=== PATIENT | female | born 1935 | race Caucasian/White ===

== ENCOUNTER 2019-10-29 21:58 | Emergency (ER) | payer OTHER ==
[~2019-10-29] VITALS: Ht 160 cm; Wt 69.8 kg
[2019-10-29 23:04] LABS: BASOPHILS ABSOLUTE AUTO 0.05 K/mm3 (0.00-0.23); BASOPHILS PERCENT AUTO 0 % (0-2); EOSINOPHILS ABSOLUTE AUTO 0.18 K/mm3 (0.00-0.68); EOSINOPHILS PERCENT AUTO 2 % (0-6); Hematocrit 32.2 % (33.0-51.0); Hemoglobin 10.5 g/dL (11.5-16.0); IMMATURE GRAN ABSOLUTE AUTO 0.07 K/mm3 (0.00-0.10); IMMATURE GRAN PERCENT AUTO 1 % (0-1); LYMPHOCYTES ABSOLUTE AUTO 1.03 K/mm3 (0.84-5.20); LYMPHOCYTES PERCENT AUTO 9 % (21-46); MONOCYTES ABSOLUTE AUTO 0.65 K/mm3 (0.16-1.47); MONOCYTES PERCENT AUTO 5 % (4-13); Mean Corpuscular HGB 31.5 pg (26.0-34.0); Mean Corpuscular HGB Conc 32.6 g/dL (31.5-36.5); Mean Corpuscular Volume 97 fL (80-100); Mean Platelet Volume 12.9 fL (9.1-12.4); NEUTROPHILS ABSOLUTE AUTO 9.95 K/mm3 (1.96-9.15); NEUTROPHILS PERCENT AUTO 84 % (41-73); Platelet Count 197 K/mm3 (150-400); RDW Coefficient Variation 12.8 % (11.7-14.2); RDW Standard Deviation 45.6 fL (35.1-46.3); Red Blood Cell Count 3.33 M/mm3 (3.80-5.20); White Blood Cell Count 11.93 K/mm3 (4.00-11.30)
[2019-10-29 23:24] LABS: Albumin, Blood 3.5 g/dL (3.4-5.0); Bilirubin, Total 0.2 mg/dL (0.1-1.0); Bun/Creatinine Ratio 15.1 (12.0-20.0); Calcium, Blood 8.6 mg/dL (8.5-10.1); Creatinine, Blood 1.52 mg/dL (0.40-1.00); Globulin, Blood 3.5 g/dL (2.2-4.0); Potassium, Blood 3.8 mmol/L (3.5-5.5); Troponin I 0.274 ng/mL (0.000-0.040)
== END 2019-10-30 00:54 | disposition left against medical advice (07) ==
LOC: ER 21:58
PROVIDERS: Emergency Medicine
DX: I21.4 Non-ST elevation (NSTEMI) myocardial infarction (principal); I16.9 Hypertensive crisis, unspecified; I72.5 Aneurysm of other precerebral arteries; I10 Essential (primary) hypertension; E78.00 Pure hypercholesterolemia, unspecified; F17.210 Nicotine dependence, cigarettes, uncomplicated; Z88.5 Allergy status to narcotic agent; W18.30XA Fall on same level, unspecified, initial encounter
CPT/HCPCS: 70450; 71046; 80053; 84484; 85025; 93005; 93010; 99284-25; J7030

== ENCOUNTER → 2020-08-26 | Outpatient (CLI) | payer MEDICARE | END | disposition home or self-care (01) | LOC: PLD 09:18 → LAB SHORT 09:18 | DX: C44.311 Basal cell carcinoma of skin of nose (principal) | CPT/HCPCS: 88305 ==

== ENCOUNTER 2021-12-19 15:05 | Emergency (ER) | payer MEDICARE, OTHER ==
[~2021-12-19] VITALS: Ht 160 cm; Wt 40.8 kg
[2021-12-19 16:43] LABS: BASOPHILS ABSOLUTE AUTO 0.09 K/mm3 (0.00-0.23); BASOPHILS PERCENT AUTO 1 % (0-2); EOSINOPHILS ABSOLUTE AUTO 0.18 K/mm3 (0.00-0.68); EOSINOPHILS PERCENT AUTO 2 % (0-6); Hematocrit 33.2 % (33.0-51.0); Hemoglobin 11.1 g/dL (11.5-16.0); IMMATURE GRAN ABSOLUTE AUTO 0.03 K/mm3 (0.00-0.10); IMMATURE GRAN PERCENT AUTO 0 % (0-1); LYMPHOCYTES ABSOLUTE AUTO 1.28 K/mm3 (0.84-5.20); LYMPHOCYTES PERCENT AUTO 16 % (21-46); MONOCYTES ABSOLUTE AUTO 0.48 K/mm3 (0.16-1.47); MONOCYTES PERCENT AUTO 6 % (4-13); Mean Corpuscular HGB 31.8 pg (26.0-34.0); Mean Corpuscular HGB Conc 33.4 g/dL (31.5-36.5); Mean Corpuscular Volume 95 fL (80-100); NEUTROPHILS ABSOLUTE AUTO 6.01 K/mm3 (1.96-9.15); NEUTROPHILS PERCENT AUTO 75 % (41-73); Platelet Count 324 K/mm3 (150-400); RDW Coefficient Variation 13.5 % (11.7-14.2); RDW Standard Deviation 46.9 fL (35.1-46.3); Red Blood Cell Count 3.49 M/mm3 (3.80-5.20); White Blood Cell Count 8.07 K/mm3 (4.00-11.30)
[2021-12-19 17:02] LABS: Albumin, Blood 3.5 g/dL (3.4-5.0); Albumin/Globulin Ratio 1.1 (0.8-1.8); Bilirubin, Total 0.3 mg/dL (0.1-1.0); Bun/Creatinine Ratio 33.1 (12.0-20.0); Calcium, Blood 8.8 mg/dL (8.5-10.1); Creatinine, Blood 1.3 mg/dL (0.40-1.00); Globulin, Blood 3.2 g/dL (2.2-4.0); Potassium, Blood 4.6 mmol/L (3.5-5.5); Total Protein, Blood 6.7 g/dL (6.4-8.2)
[2021-12-19 21:04] LABS: Source, Urine Clean Catch
[2021-12-19 21:11] LABS: Appearance, Urine Cloudy (Clear); Bilirubin, Urine Neg (Neg); Blood, Urine Neg (Neg); Color, Urine Amber (P-Yellow); Glucose Qualitative, Urine Neg (Neg); Ketones, Urine Neg (Neg); Leukocyte Esterase, Urine Neg (Neg); Nitrite, Urine Neg (Neg); Protein, Urine 3+ (Neg); Urobilinogen, Urine NORM (Normal)
[2021-12-19 21:23] LABS: Amorphous Heavy (0-Heavy); Bacteria Few /hpf; Red Blood Cells, Urine Not Seen /hpf (0-2); Squamous Epithelial Cells Few /hpf (Few); White Blood Cells, Urine Not Seen /hpf (0-5)
[2021-12-19] MEDS ORDERED: Keppra750 MG PO (21:45)
[2021-12-19] MEDS ORDERED: TRAZ50 PO (21:46)
== END 2021-12-20 00:43 | disposition home or self-care (01) ==
LOC: ER 15:05
PROVIDERS: Physician Assistant
DX: R11.2 Nausea with vomiting, unspecified (principal); R19.7 Diarrhea, unspecified; I10 Essential (primary) hypertension; F17.210 Nicotine dependence, cigarettes, uncomplicated; Z88.5 Allergy status to narcotic agent
CPT/HCPCS: 36415; 80053; 81001; 83690; 85025; 99283; P9612

== ENCOUNTER 2022-08-06 18:53 | Inpatient (IN) | payer MEDICARE, OTHER ==
[~2022-08-06] VITALS: Ht 160 cm; Wt 50.8 kg
[~2022-08-06 18:53] MED LIST: Keppra750 MG PO; TRAZ50 PO
[2022-08-06 20:14] LABS: BASOPHILS ABSOLUTE AUTO 0.01 K/mm3 (0.00-0.23); BASOPHILS PERCENT AUTO 0 % (0-2); EOSINOPHILS PERCENT AUTO 0 % (0-6); Hematocrit 27.7 % (33.0-51.0); Hemoglobin 9.3 g/dL (11.5-16.0); IMMATURE GRAN ABSOLUTE AUTO 0.04 K/mm3 (0.00-0.10); IMMATURE GRAN PERCENT AUTO 0 % (0-1); LYMPHOCYTES ABSOLUTE AUTO 0.35 K/mm3 (0.84-5.20); LYMPHOCYTES PERCENT AUTO 3 % (21-46); MONOCYTES ABSOLUTE AUTO 0.36 K/mm3 (0.16-1.47); MONOCYTES PERCENT AUTO 3 % (4-13); Mean Corpuscular HGB Conc 33.6 g/dL (31.5-36.5); Mean Corpuscular Volume 95 fL (80-100); NEUTROPHILS ABSOLUTE AUTO 11.36 K/mm3 (1.96-9.15); NEUTROPHILS PERCENT AUTO 94 % (41-73); Platelet Count 202 K/mm3 (150-400); RDW Standard Deviation 48.8 fL (35.1-46.3); Red Blood Cell Count 2.91 M/mm3 (3.80-5.20); White Blood Cell Count 12.12 K/mm3 (4.00-11.30)
[2022-08-06 20:17] LABS: International Normalized Ratio 0.98; Prothrombin Time Results 10.3 Sec (9.7-11.5)
[2022-08-06 20:17] LABS: Mean Platelet Volume 13.3 fL (9.1-12.4)
[2022-08-06 20:22] LABS: Bilirubin, Total 0.2 mg/dL (0.1-1.0); Calcium, Blood 7.2 mg/dL (8.5-10.1); Creatinine, Blood 4.83 mg/dL (0.40-1.00); Globulin, Blood 3.1 g/dL (2.2-4.0); Total Protein, Blood 6.1 g/dL (6.4-8.2)
--- NOTE | 2022-08-06 22:58 | NUR ---
PATIENT ARRIVED FROM ER VIA GURNEY AT 2238. VERY LETHARGIC. UNABLE TO ANSWER QUESTIONS EVEN YES OR NO UPON ARRIVAL. AFTER REMOVING PATIENT CLOTHING AND GENTLY CLEANSING LEGS AND ERIC-RECTAL AREA OF DRIED STOOL, IT WAS NOTED NED GLUTEAL FOLDS WERE VERY RED AND HAD TWO SMALL OPEN AREAS. ALSO, EMANUEL BLOOD WAS SLOWLY DRIPPING FOR HER RECTUM.
[2022-08-07 01:06] LABS: Hematocrit 27.7 % (33.0-51.0); Hemoglobin 9.3 g/dL (11.5-16.0)
--- NOTE | 2022-08-07 02:13 | NUR ---
HGB ON 0100 DRAW REMAINS 9.3. NO CHANGE FROM INITIAL LAB. 2 AMP BICARB GIVEN PER ORDER. CURRENTLY RUNNING CONTINUOUS BICARB GTT AT 100ML/HOUR. PROTONIX ALSO UP RUNNING AT 10ML/HR. PATIENT REMAINS UNABLE TO PROVIDE MEDICAL HX OR MEDICATIONS. INFO FOR ADMISSION GATHERED FROM PREVIOUS NOTES IN [facility]. CALL PLACED TO NILAM FRIAS. SPOKE WITH CAREGIVER FROM THE ASSISTED LIVING FLOOR WHO STATED THAT JULIAN LIVES ON THE INDEPENDENT LIVING FLOOR, AND SHE DOES NOT HAVE ACCESS TO THIS PATIENT'S MARS OR MEDICAL HISTORY. PHONE NUMBER FOR MED FLOOR CHARGE DESK GIVEN AND REQUESTED THAT WHEN OTHER CAREGIVERS ARRIVE IN THE MORNING, TO PLEASE HAVE THEM CALL WITH PATIENT INFORMATION. COME IN IN THE MORNING,
--- NOTE | 2022-08-07 08:01 | NUR ---
CALLED GI ANSWERING SERVICE. LEFT MESSAGE WITH THE ANSWERING ATHLETIC EVENTS SCORER FOR DR GARDNER GI CONSULT.
--- NOTE | 2022-08-07 08:13 | NUR ---
LABORER ORCHARD SUMMARY PATIENT VERY LETHARGIC OVERNIGHT. UNABLE TO RELAY ANY MEDICAL HISTORY OR EVEN THE MONTH TOWARDS THE END OF THE SHIFT. SHE WAS ALERT ENOUGH UPON ARRIVAL TO SIT UP ON THE GURNEY AND ASK IF SHE HAD PNEUMONIA. SHE SAID THAT AT HOME. SHE WAS INDEPENDENT AND AMBULATING WITH A FWW. WITHIN MINUTES OF ASSESSING HER SHE WAS ASLEEP, AND AFTER THAT,SHE JUST KEPT ASKING IF SHE COULD "GO TO BED". SHE DOES REQUIRE CONSTANT REDIRECTION REGARDING NOT PULLING AT WIRES OR REACHING FOR IV. SCANNED ONCE OVERNIGHT TO FIND SHE HAD LESS THAN 50ML IN HER BLADDER. NO VOID YET SINCE ADMISSION. PATIENT HAS BEEN NPO ALL NIGHT. PHOTOS ON CHART SHOW A VERY EXCORIATED GLUTEAL FOLD AND ERIC AREA. TWO VERY SMALL OPEN ABRADED AREAS ONE OF WHICH IS STILL WEEPING EMANUEL BLOOD WERE CLEANSED AND COVERED WITH MEPILEX. OTHER AREAS WERE COVERED WITH BARRIER CREAM
--- NOTE | 2022-08-07 08:22 | NUR ---
CALL FROM DR HOLLINGSWORTH. PT MAY DRINK WATER UNTIL 1300HRS THEN NPO.
[2022-08-07 08:43] LABS: BASOPHILS PERCENT AUTO 0 % (0-2); EOSINOPHILS PERCENT AUTO 0 % (0-6); Hemoglobin 9.4 g/dL (11.5-16.0); IMMATURE GRAN ABSOLUTE AUTO 0.05 K/mm3 (0.00-0.10); IMMATURE GRAN PERCENT AUTO 1 % (0-1); LYMPHOCYTES ABSOLUTE AUTO 0.46 K/mm3 (0.84-5.20); LYMPHOCYTES PERCENT AUTO 5 % (21-46); MONOCYTES PERCENT AUTO 4 % (4-13); Mean Corpuscular HGB 31.9 pg (26.0-34.0); Mean Corpuscular HGB Conc 34.8 g/dL (31.5-36.5); Mean Corpuscular Volume 92 fL (80-100); Mean Platelet Volume 13.4 fL (9.1-12.4); NEUTROPHILS ABSOLUTE AUTO 9.21 K/mm3 (1.96-9.15); NEUTROPHILS PERCENT AUTO 91 % (41-73); Platelet Count 203 K/mm3 (150-400); RDW Coefficient Variation 13.7 % (11.7-14.2); RDW Standard Deviation 46.5 fL (35.1-46.3); Red Blood Cell Count 2.95 M/mm3 (3.80-5.20); White Blood Cell Count 10.12 K/mm3 (4.00-11.30)
[2022-08-07 09:20] LABS: Albumin, Blood 2.8 g/dL (3.4-5.0); Albumin/Globulin Ratio 0.9 (0.8-1.8); Bilirubin, Total 0.2 mg/dL (0.1-1.0); Bun/Creatinine Ratio 25.4 (12.0-20.0); Calcium, Blood 6.8 mg/dL (8.5-10.1); Creatinine, Blood 4.56 mg/dL (0.40-1.00); Globulin, Blood 3.1 g/dL (2.2-4.0); Potassium, Blood 3.7 mmol/L (3.5-5.5); Total Protein, Blood 5.9 g/dL (6.4-8.2)
--- NOTE | 2022-08-07 09:25 | NUR ---
CRITICAL CO2 CALL FROM LAB AT 918. DR HERNANDEZ CALLED AND NOTIFIED AT 09. BICARB IS CURRENTLY INFUSING. NO NEW ORDERS AT THIS TIME.
[2022-08-07] MEDS ORDERED: Prinivil10 MG PO (11:03)
[2022-08-07] MEDS ORDERED: AMLO10 PO (11:04)
--- NOTE | 2022-08-07 11:22 | NUR ---
RN NOTE I SPOKE TO JERRICA THE OFFICE EMPLOYEE AT [facility]. SHE SAID PT HAS BEEN CONFUSED AT BASELINE, HAS HAS POOR DIETARY INTAKE, SKOKES AND DRINKS A OT OF COFFEE. SHE SAID PT HAS DEMENTIA, DOESN'T KNOW REST OF MEDICAL HX OR MEDS. SHE SAID SHE HAS PUSHED FOR [facility] AND HAS CALLED APS TWICE. SHE SAID SON RAFAEL HAS SAID HE DOESN'T WANT TO BE INVOLVED. SHE DID FAX ME A COPY OF POLST WITH DNR. I CALLED LALO QUARTZ CUTTER AND INFORMED HER OF UPDATE. I CALLED SON - PHONE NOT IN SERVICE. I CALLED NOK FRIEND YONI ON FILE AND LEFT DISCRETE MESSAGE. I CALLED MEDICAL FACILITIES IN [place] AND TALKED TO MALINA NURSE MACHINE SPECIALIST AT [facility]. SHE CONFIRMED PT HAS GONE THERE. CONFIRMED MED LIST I GOT FROM [facility]. SAID SHE WILL FAX ME WHAT INFORMATION SHE CAN FIND. I UPDATED DR HERNANDEZ ON STATUS AND MED LIST. STATUS CHANGED TO DNR, PALLIATIVE CARE CONSULT PLACED PER TELEPHONE ORDER. PT HAS NOT VOIDED THOUGH HAS TRIED ON BSC. 300CC IN BLADDER ON US PER US TECH THIS AM. STRAIGHT CATH ORDER FROM DR HERNANDEZ. PT CONFUSED. ORIENTATED TO NAME AND TO [place], THINKS IT'S 1962. HAS 5/10 BACK ACHE AND MILD NAUSEA. HAS NOT WANTED TO DRINK FLUIDS. NO BM THIS AM.
[2022-08-07 11:27] LABS: Hemoglobin 8.9 g/dL (11.5-16.0)
[2022-08-07 12:37] LABS: Source, Urine Straight Cath
[2022-08-07 12:43] LABS: Appearance, Urine Clear (Clear); Bilirubin, Urine Neg (Neg); Blood, Urine 2+ (Neg); Color, Urine Yellow (P-Yellow); Glucose Qualitative, Urine Neg (Neg); Ketones, Urine 2+ (Neg); Leukocyte Esterase, Urine Neg (Neg); Nitrite, Urine Neg (Neg); Protein, Urine 3+ (Neg); Specific Gravity, Urine 1.015 (1.003-1.022); Urobilinogen, Urine NORM (Normal)
[2022-08-07 12:58] LABS: Red Blood Cells, Urine 0-2 /hpf (0-2); Squamous Epithelial Cells Rare /hpf (Few); White Blood Cells, Urine 0-2 /hpf (0-5)
[2022-08-07 12:59] LABS: Bacteria Few /hpf
[2022-08-07 13:01] LABS: Amorphous Mod (0-Heavy)
--- NOTE | 2022-08-07 16:24 | NUR ---
SHIFT SUMMARY PLEASE SEE EARLIER RN NOTE. NO RETURN CALL FROM FRIEND LISTED NEXT OF KIN. NO FAXED INFORMATION FROM MALINA, NURSING TECHNICAL FELLOW AT [facility]. PALLIATIVE CARE CONSULTED AND INVOLVED IN HER CARE. COGNITIVE EVAL AND POSSIBLE PSYCH CONSULT FOR GUARDIANSHIP DISCUSSED WITH DR HERNANDEZ. NO PSYCH CARE AVAILABLE AT THIS TIME (FOREST AIDE ELLEN JERAD). COGNITIVE EVAL FROM OT ORDERED, BUT THEY ARE NOT HERE OVER THE WEEKEND. BICARB IV AND PROTONIX GTT CONTINUES. NO BM SO FAR THIS SHIFT. SHE WAS UNABLE TO VOID AND STRAIGHT CATH WAS DONE AT ~1300HRS WITH 540CC UOP. MS ROSA HAS BEEN VERY SLEEPY TODAY. SHE AWAKENS TO VOICE BUT HAS BEEN VERY CONFUSED WHEN AWAKE. ABLE TO FOLLOW DIRECTIONS, BUT VERY FORGETFUL. MOIST NON PRODUCTIVE COUGH. BACK DISCOMFORT WHEN ASKED, BUT SHE DOES NOT VERBALISE PAIN AND HAS DENIED NEED FOR MEDICATIONS. BED LOW, BED ALARM ON. CALL LIGHT IN REACH.
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
[2022-08-07 17:59] LABS: Base Excess Venous -21.6 mmol/L; Bicarbonate Venous 9.9 mmol/L (24.0-30.0); PCO2 Venous 18.5 mmHg (38-42)
[2022-08-07 18:00] LABS: pH Blood Venous 7.18 (7.34-7.37)
[2022-08-07 18:01] LABS: Hematocrit 25.9 % (33.0-51.0); Hemoglobin 9.1 g/dL (11.5-16.0)
--- NOTE | 2022-08-07 18:11 | NUR ---
CALL FROM WILLIE WITH RT REGARDING VENOUS BLOOD GAS VALUES. DR HERNANDEZ CALLED AND NOTIFIED. NO NEW ORDERS AT THIS TIME.
[2022-08-07 18:18] LABS: Bun/Creatinine Ratio 25.9 (12.0-20.0); Calcium, Blood 6.8 mg/dL (8.5-10.1); Creatinine, Blood 4.68 mg/dL (0.40-1.00); Potassium, Blood 3.3 mmol/L (3.5-5.5)
--- NOTE | 2022-08-07 18:26 | NUR ---
CRITICAL CO2 CALLED FROM LAB AT 1817. CALLED AND INFORMED DR HERNANDEZ AT 1821. NEW ORDERS PLACED BY DR HERNANDEZ.
--- NOTE | 2022-08-07 18:31 | NUR ---
Review of patient with nursing . chart review pt has been declining the past few years since moving hear. Off her meds per notes by hers son. Not getting care form primary care. Will review with physicn and team and faormulate a clearer prognosis and present plan.
[2022-08-08 05:20] LABS: Hematocrit 24.4 % (33.0-51.0); Hemoglobin 8.9 g/dL (11.5-16.0); Mean Corpuscular HGB 31.7 pg (26.0-34.0); Mean Corpuscular HGB Conc 36.5 g/dL (31.5-36.5); Mean Platelet Volume 12.9 fL (9.1-12.4); Platelet Count 209 K/mm3 (150-400); RDW Coefficient Variation 13.5 % (11.7-14.2); Red Blood Cell Count 2.81 M/mm3 (3.80-5.20); White Blood Cell Count 7.64 K/mm3 (4.00-11.30)
[2022-08-08 05:22] LABS: Mean Corpuscular Volume 87 fL (80-100)
[2022-08-08 05:48] LABS: Magnesium, Blood 2.1 mg/dL (1.6-2.4)
[2022-08-08 05:54] LABS: Albumin, Blood 2.6 g/dL (3.4-5.0); Anion Gap 15 mmol/L (6-16); Blood Urea Nitrogen 98 mg/dL (8-24); Bun/Creatinine Ratio 26.8 (12.0-20.0); CO2, Blood 18 mmol/L (21-32); Chloride, Blood 108 mmol/L (98-108); Creatinine, Blood 3.65 mg/dL (0.40-1.00); Glomerular Filtration Rate 12 (60-); Glucose, Blood 147 mg/dL (70-99); Phosphorus, Blood 4.4 mg/dL (2.5-4.9); Potassium, Blood 2.3 mmol/L (3.5-5.5); Sodium, Blood 141 mmol/L (136-145)
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
--- NOTE | 2022-08-08 17:24 | NUR ---
SHIFT SUMMARY MS ROSA HAS BEEN VERY CONFUSED TODAY. SHE IS ABLE TO ANSWER SOME OF THE ORIENTATION QUESTIONS INTERMITTANTLY, BUT IS FREQUENTLY CONFUSED ABOUT WHERE SHE IS, FREQUENTLY TELLING ME CONFUSED STORIES, VERY FORGETFUL. TURNED IN BED, INCONT OF URINE, UNMEASURABLE BUT SEEMS LARGE URINE OUTPUT. PURE WICK PLACED. SHE HAS DENIED PAIN EXCEPT FOR GENERAL DISCOMFORT WITH RIGHT ARMBOARD OVER IV SITE. ARMBOARD REMOVED AND SITE CHECKED. IVF NS CONTINUES AT 75CC/HR. SHE HAS BEEN REMINDED TO DRINK WATER, PREFERING PEPSI. PROTONIX GTT CONTINUES. NO STOOL TODAY. MEPILEX ON BUTTOCKS, AREA RED, EXCORIATED WITH SMALL SKIN BREAKDOWN. MOIST COUGH CONTINUES, APPEARS UNCHANGED FROM YESTERDAY. BED LOW, CALL LIGHT IN REACH, BED ALARM ON.
--- NOTE | 2022-08-09 03:43 | NUR ---
NIGHTSHIFT SUMMARY Patient alert/oriented to self, disoriented to place/situation, she kept referring to another patient as a witch, demanding that staff get rid of her, or else she would. Reoriented patient to time/place/situation. Patient allowed cares most of the night, purewick in place for incontince. C/o knee pain, Tylenol administred, PRN effective. IV fluids & Protonix infusing continously. Vitals stable, will continue to monitor.
[2022-08-09 04:38] LABS: Hematocrit 24.6 % (33.0-51.0); Hemoglobin 8.9 g/dL (11.5-16.0); Mean Corpuscular HGB 31.4 pg (26.0-34.0); Mean Corpuscular HGB Conc 36.2 g/dL (31.5-36.5); Mean Corpuscular Volume 87 fL (80-100); NRBC ABSOLUTE 0.02 K/mm3 (0.00-0.02); NRBC Auto 0.2 /100 WBC (0.0-0.2); Platelet Count 228 K/mm3 (150-400); RDW Coefficient Variation 13.4 % (11.7-14.2); RDW Standard Deviation 42.9 fL (35.1-46.3); Red Blood Cell Count 2.83 M/mm3 (3.80-5.20); White Blood Cell Count 8.01 K/mm3 (4.00-11.30)
[2022-08-09 04:42] LABS: Mean Platelet Volume 13.2 fL (9.1-12.4)
[2022-08-09 04:53] LABS: Magnesium, Blood 1.6 mg/dL (1.6-2.4)
[2022-08-09 05:19] LABS: Albumin, Blood 2.3 g/dL (3.4-5.0); Anion Gap 11 mmol/L (6-16); Blood Urea Nitrogen 68 mg/dL (8-24); Bun/Creatinine Ratio 36.2 (12.0-20.0); CO2, Blood 19 mmol/L (21-32); Calcium, Blood 6.7 mg/dL (8.5-10.1); Chloride, Blood 112 mmol/L (98-108); Creatinine, Blood 1.88 mg/dL (0.40-1.00); Glomerular Filtration Rate 26 (60-); Glucose, Blood 106 mg/dL (70-99); Potassium, Blood 2.2 mmol/L (3.5-5.5); Sodium, Blood 142 mmol/L (136-145)
--- NOTE | 2022-08-09 11:58 | NUR ---
RN NOTE MS ROSA REMAINS VERY CONFUSED. HAS NICOTENE PATCH ON, BUT DOES ASK IF SHE CAN SMOKE, SAID SHE SEES OTHER PEOPLE SMOKING IN THE HALLWAYS. SHE HAS CONSISTANTLY BEEN ABLE TO TELL ME HER NAME AND TELLS ME THE NAMES OF OTHER PEOPLE SHE KNOWS BUT SHE ONLY INTERMITTANTLY KNOWS THAT SHE IS IN [place] OR IN THE HOSPITAL. C/O R KNEE PAIN THIS AM, TYLENOL AND REPOSITIONING HELPED, UNCLEAR WHETHER THIS IS NEW OR CHRONIC. INCONTINENT OF URINE, PURE WICK IN PLACE. UP TO RECLINER WITH 1 PERSON ASSIST, CHAIR ALARM USED. SHE DID NOT WEIGHT BEAR VERY WELL OR FOLLOW INSTRUCTIONS VERY WELL FOR THE TRANSFER. NEW PIV PLACED THIS AM AFTER INFILTRATION OF RUE PIV (REMOVED). IVF AND PROTONIX GTT CONTINUE. MS ROSA ATE SOME EGGS FOR BREAKFAST THIS AM, WHICH IS GOOD FOR HER. ENCOURAGED TO CONSUME MORE WATER AND MEAL FROM HER TRAYS RATHER THAN JUST PEPSI. BACK IN BED NOW, BED LOW, CALL LIGHT IN REACH, BED ALARM ON.
--- NOTE | 2022-08-09 19:26 | NUR ---
SHIFT SUMMARY MS ROSA REMAINED CONFUSED THROUGHOUT THE DAY TODAY. ENERGETIC AND TALKATIVE, BUT FREQUENTLY ASKING TO GO OUTSIDE FOR A CIGARETTE. ATE A LITTLE MORE TODAY. GIVEN TYLENOL TWICE WHICH SEEMS TO HELP TO KEEP HER COMFORTABLE. GOOD UOP, BUT UNMEASURABLE INCONTINENT WHEN PURE WICK FELL OUT (REPLACED). NO CALLS FROM WARDROBE STYLIST. TOLERATED BEING UP IN THE CHAIR BUT NOT FOLLOWING INSTRUCTIONS ENOUGH TODAY TO AMBULATE IN HER ROOM, ABLE TO PIVOT AND TAKE A COUPLE OF STEPS WITH REPEATED INSTRUCTIONS. DRANK A WHOLE BOTTLE OF PEPSI (500ML) BUT REFUSING WATER MOST OF THE TIME. IVF AND PROTONIX GTT INFUSING. BED LOW, CALL LIGHT IN REACH.
[2022-08-09 21:48] LABS: Influenza A, PCR NEGATIVE (NEGATIVE); Influenza B, PCR NEGATIVE (NEGATIVE); Resp Syncytial Virus, PCR NEGATIVE (NEGATIVE); SARS-Cov-2 (COVID-19) PCR, MMC NEGATIVE (NEGATIVE)
--- NOTE | 2022-08-10 04:49 | NUR ---
SHIFT SUMMARY PT HAS BEEN ON HER CALL LIGHT MUCH OF THE NIGHT. PT PLEASANTLY CONFUSED, PUSHING BUTTONS ON HER CALL LIGHT TO TURN OF RANDOM THINGS IN HER ROOM. PT ASKED FOR MEDICATION FOR SLEEP AND FOR HER SINUS ISSUES. CALLED DR FINLEY AND WAS GIVEN CLARITIN AND MELATONIN PER EMAR. PT RESTING QUIETLY AT THIS TIME. NS AND PROTONIX STILL RUNNING AT THIS TIME. CALL LIGHT WITHIN HER REACH.
[2022-08-10 07:18] LABS: Hemoglobin 8.9 g/dL (11.5-16.0); Mean Corpuscular HGB 31.6 pg (26.0-34.0); Mean Corpuscular HGB Conc 35.6 g/dL (31.5-36.5); Mean Corpuscular Volume 89 fL (80-100); Mean Platelet Volume 12.3 fL (9.1-12.4); Platelet Count 228 K/mm3 (150-400); RDW Coefficient Variation 13.8 % (11.7-14.2); RDW Standard Deviation 44.7 fL (35.1-46.3); Red Blood Cell Count 2.82 M/mm3 (3.80-5.20); White Blood Cell Count 8.72 K/mm3 (4.00-11.30)
[2022-08-10 07:44] LABS: Albumin, Blood 2.1 g/dL (3.4-5.0); Anion Gap 9 mmol/L (6-16); Blood Urea Nitrogen 48 mg/dL (8-24); Bun/Creatinine Ratio 34.8 (12.0-20.0); CO2, Blood 19 mmol/L (21-32); Calcium, Blood 7.7 mg/dL (8.5-10.1); Chloride, Blood 116 mmol/L (98-108); Creatinine, Blood 1.38 mg/dL (0.40-1.00); Glomerular Filtration Rate 38 (60-); Glucose, Blood 107 mg/dL (70-99); Magnesium, Blood 1.3 mg/dL (1.6-2.4); Phosphorus, Blood 2.7 mg/dL (2.5-4.9); Sodium, Blood 144 mmol/L (136-145)
--- NOTE | 2022-08-10 08:07 | NUR ---
Pt laying in bed awake a/ox2, states she's been here too long, but couldn't tell me when she came in, states she's cold but doing ok, thermostat is all the way up, lungs are clear t/o, a bit dim in bases, no cough noted at this time, on r/a, hrr, tele in place running sr with pacs, no edema noted, ppp faint, cap refill <3sec, vs stable, afebrile, iv x2, to r and l fa's infusing ns and protonix as ordered, btx4, abd flat soft nontender, incont of urine, purwik in place, and briefs, skin is clear except bottom is pink, not open, she is a 1-2 person assist to bsc, robb lee, james, call light in reach.
--- NOTE | 2022-08-10 18:05 | NUR ---
pt has been in bed repositioned a number of times, is pleasantly confused, will have an egd tomorrow, no acute changes this shift, call light in reach.
--- NOTE | 2022-08-11 04:40 | NUR ---
A&Ox2-3 WITH TANGENT, EPISODIC CONFUSION, SUCH USING CALL LIGHT ON TV REMOTE TO CALL FOR ASSISTANCE TURNING OFF THE TV. INCONTINENT OF BOWEL AND URINE; PUREWICK REMOVED THIS EVENING DUE TO FREQUENT BED CHANGES. CARDIAC TELEMETRY SINUS RHYTHM LAST NIHGT WITHOUT CARDIAC INCIDENT. PROTONIX gtt: MOST RECENT BAG TURNER AT 0330 AND SET TO ALARM 1 HOUR BEFORE COMPLETION SO NEW BAG CAN BE ORDERED IN TIME FROM PHARMACY. HAS BEEN ON CLEAR LIQUIDS ONLY SINCE MIDNIGHT AND WILL BE NPO AFTER NOON IN ANTICIPATION OF EGD THIS AFTERNOON. 3 LOOSE STOOLS NOTED LAST NIGHT; NO MELENA REPORTED. NO C/O ABD PAIN, DISCOMFORT OR URINRAY RETENTION. VSS. WILL REPORT TO ONCOMING RN.
[2022-08-11 04:42] LABS: Hematocrit 26.6 % (33.0-51.0); Hemoglobin 9.1 g/dL (11.5-16.0)
[2022-08-11 05:44] LABS: Albumin, Blood 2.1 g/dL (3.4-5.0); Anion Gap 7 mmol/L (6-16); Blood Urea Nitrogen 33 mg/dL (8-24); Bun/Creatinine Ratio 29.5 (12.0-20.0); CO2, Blood 21 mmol/L (21-32); Chloride, Blood 114 mmol/L (98-108); Creatinine, Blood 1.12 mg/dL (0.40-1.00); Ferritin, Serum 172 ng/mL (8-252); Glomerular Filtration Rate 48 (60-); Glucose, Blood 100 mg/dL (70-99); Iron Serum 26 ug/dL (50-170); Magnesium, Blood 1.5 mg/dL (1.6-2.4); Percent Saturation 14.6 % (15.0-50.0); Phosphorus, Blood 2.4 mg/dL (2.5-4.9); Potassium, Blood 3.4 mmol/L (3.5-5.5); Sodium, Blood 142 mmol/L (136-145); Total Iron Binding Capacity 178 ug/dL (250-450)
--- NOTE | 2022-08-11 17:29 | NUR ---
SHIFT SUMMARY PT HAS BEEN NPO SINCE NOON FOR EGD WHICH HAS BEEN DELAYED TIL AFTER 1800. PT UPSET ABOUT THE DELAY AND STATES SHE IS JUST DONE IN DESCRIPTION OF NOT WANTING TO WAIT ANYMORE. WANTS TO EAT AND HAVE COFFEE. INCONTINENT OF URINE. PULLED HER IV OUT THIS MORNING AND THEN AGREED TO NOT PULL ANYMORE OUT TO AVOID ANOTHER IV STICK. DENIES PAIN OR NAUSEA OTHER THAN HUNGER. WALKING WITH PT AND OT TODAY USING A FWW. FRIEND YONI IN TO VISIT THIS MORNING. PLANS FOR PT TO RETURN TO [facility] WHEN SHE IS DISCHARGED.
--- NOTE | 2022-08-11 19:51 | NUR ---
08/11/221950 Karen Landaevrde See Anesthesia record.
--- NOTE | 2022-08-12 00:28 | NUR ---
PT BACK TO MEDICAL FLOOR FOLLOWING RECOVER IN PACU AFTER EGD. SITTING UP IN BED, DRINKING COFFEE. DECLINES DINNER TRAY. ADMINISTERED NIGHT TIME MEDS. NO CONCERNS AT THIS TIME.
--- NOTE | 2022-08-12 04:37 | NUR ---
ROVING TELLER SUMMARY: A&O TO SELF WITH INTERMITTENT ORIENTATION TO OTHER AND SURROUNDINGS. VSS. NO ACUTE CONCERNS T/O EVENING. CALLS FOR HELP. ANTICIPATE DC TO HOME AT [facility] TODAY. WILL REPORT TO ONCOMING RN.
[2022-08-12 05:19] LABS: Albumin, Blood 2.3 g/dL (3.4-5.0); Anion Gap 10 mmol/L (6-16); Blood Urea Nitrogen 25 mg/dL (8-24); Bun/Creatinine Ratio 21.9 (12.0-20.0); CO2, Blood 21 mmol/L (21-32); Calcium, Blood 8.2 mg/dL (8.5-10.1); Chloride, Blood 110 mmol/L (98-108); Creatinine, Blood 1.14 mg/dL (0.40-1.00); Glomerular Filtration Rate 47 (60-); Glucose, Blood 93 mg/dL (70-99); Phosphorus, Blood 3.7 mg/dL (2.5-4.9); Potassium, Blood 3.3 mmol/L (3.5-5.5); Sodium, Blood 141 mmol/L (136-145)
[2022-08-12] MEDS ORDERED: Acerola C500 MG PO (10:09)
[2022-08-12] MEDS ORDERED: DOCU100 PO (10:10)
[2022-08-12] MEDS ORDERED: CALCIUM CARBON500 M1 PO (10:10)
[2022-08-12] MEDS ORDERED: FERSU300 PO (10:11)
[2022-08-12] MEDS ORDERED: MIRALAX17 GM PO (10:11)
--- NOTE | 2022-08-12 14:22 | NUR ---
DISCHARGE INSTRUCTIONS COMPLETED AND DISCUSSED WITH PT EXPRESSING UNDERSTANDING. FRIEND YONI AT BEDSIDE WELL AND LISTENED IN ON INSTRUCTIONS. TO CURB VIA W/C WITH MADELEINE VALLEJO.
== END 2022-08-12 13:34 | disposition home health service (06) | DRG 682 ==
LOC: ER 18:53 → MEDS 21:55
PROVIDERS: Emergency Medicine; Internal Medicine; Internal Medicine Gastroenterology; ADMIT Internal Medicine
PROC: 0DJ08ZZ Inspection of Upper Intestinal Tract, Via Natural or Artificial Opening Endoscopic (ICD-10-PCS; principal; 2022-08-11 18:00)
DX: N17.9 Acute kidney failure, unspecified (principal); G92.8 Other toxic encephalopathy; E44.0 Moderate protein-calorie malnutrition; Z68.1 Body mass index [BMI] 19.9 or less, adult; E87.20 Acidosis, unspecified; D50.9 Iron deficiency anemia, unspecified; E78.00 Pure hypercholesterolemia, unspecified; Z88.5 Allergy status to narcotic agent; Z66 Do not resuscitate; G40.909 Epilepsy, unspecified, not intractable, without status epilepticus; Z79.899 Other long term (current) drug therapy; F17.210 Nicotine dependence, cigarettes, uncomplicated; Z20.822 Contact with and (suspected) exposure to COVID-19; E87.6 Hypokalemia; E83.39 Other disorders of phosphorus metabolism; N18.30 Chronic kidney disease, stage 3 unspecified; E83.42 Hypomagnesemia
CPT/HCPCS: 0241U; 36415; 76770; 80048; 80053; 80069; 81001; 82272; 82607; 82728; 82746; 82803; 83540; 83550; 83735; 83880; 84132; 85014; 85018; 85025; 85027; 85610; 86850; 86900; 86901; 96125-GN; 96360; 96361; 97116; 97129; 97161; 97166; 97530; 99285-25; A9270; C9113; J2001; J2250; J2704; J3475; J3480; J7030; J7050; J7060; J7120

== ENCOUNTER 2022-08-25 10:49 | Emergency (ER) | payer MEDICARE, OTHER ==
[~2022-08-25] VITALS: Ht 160 cm; Wt 40.8 kg
[~2022-08-25 10:49] MED LIST changes: +AMLO10 PO; +Acerola C500 MG PO; +CALCIUM CARBON500 M1 PO; +DOCU100 PO; +FERSU300 PO; +MIRALAX17 GM PO; +Prinivil10 MG PO
[2022-08-25 14:07] LABS: BASOPHILS ABSOLUTE AUTO 0.06 K/mm3 (0.00-0.23); BASOPHILS PERCENT AUTO 1 % (0-2); EOSINOPHILS ABSOLUTE AUTO 0.19 K/mm3 (0.00-0.68); EOSINOPHILS PERCENT AUTO 2 % (0-6); Hematocrit 27.2 % (33.0-51.0); IMMATURE GRAN ABSOLUTE AUTO 0.03 K/mm3 (0.00-0.10); IMMATURE GRAN PERCENT AUTO 0 % (0-1); LYMPHOCYTES ABSOLUTE AUTO 0.78 K/mm3 (0.84-5.20); LYMPHOCYTES PERCENT AUTO 8 % (21-46); MONOCYTES ABSOLUTE AUTO 0.48 K/mm3 (0.16-1.47); MONOCYTES PERCENT AUTO 5 % (4-13); Mean Corpuscular HGB 32.5 pg (26.0-34.0); Mean Corpuscular HGB Conc 33.1 g/dL (31.5-36.5); Mean Corpuscular Volume 98 fL (80-100); Mean Platelet Volume 12.2 fL (9.1-12.4); NEUTROPHILS ABSOLUTE AUTO 8.91 K/mm3 (1.96-9.15); NEUTROPHILS PERCENT AUTO 85 % (41-73); Platelet Count 291 K/mm3 (150-400); RDW Coefficient Variation 14.5 % (11.7-14.2); RDW Standard Deviation 51.9 fL (35.1-46.3); Red Blood Cell Count 2.77 M/mm3 (3.80-5.20); White Blood Cell Count 10.45 K/mm3 (4.00-11.30)
[2022-08-25 14:26] LABS: Albumin, Blood 2.9 g/dL (3.4-5.0); Albumin/Globulin Ratio 0.9 (0.8-1.8); Bilirubin, Total 0.3 mg/dL (0.1-1.0); Bun/Creatinine Ratio 21.4 (12.0-20.0); Calcium, Blood 7.4 mg/dL (8.5-10.1); Creatinine, Blood 1.54 mg/dL (0.40-1.00); Globulin, Blood 3.4 g/dL (2.2-4.0); Potassium, Blood 3.2 mmol/L (3.5-5.5); Total Protein, Blood 6.3 g/dL (6.4-8.2)
== END 2022-08-25 15:20 | disposition home or self-care (01) ==
LOC: ER 10:49
PROVIDERS: Emergency Medicine
DX: K62.5 Hemorrhage of anus and rectum (principal); F17.210 Nicotine dependence, cigarettes, uncomplicated; Z88.5 Allergy status to narcotic agent; Z79.899 Other long term (current) drug therapy
CPT/HCPCS: 80053; 85025

== ENCOUNTER 2022-09-06 14:34 | Inpatient (IN) | payer MEDICARE, OTHER ==
[~2022-09-06] VITALS: Ht 157.5 cm; Wt 45.4 kg
[~2022-09-06 14:34] MED LIST changes: -AMLO10 PO; -Acerola C500 MG PO; -CALCIUM CARBON500 M1 PO; -DOCU100 PO; -FERSU300 PO; -MIRALAX17 GM PO; -Prinivil10 MG PO; -TRAZ50 PO
[2022-09-06 15:35] LABS: Source, Urine Foley catheter
[2022-09-06 15:47] LABS: BASOPHILS ABSOLUTE AUTO 0.04 K/mm3 (0.00-0.23); BASOPHILS PERCENT AUTO 0 % (0-2); EOSINOPHILS ABSOLUTE AUTO 0.01 K/mm3 (0.00-0.68); EOSINOPHILS PERCENT AUTO 0 % (0-6); Hematocrit 24.6 % (33.0-51.0); IMMATURE GRAN ABSOLUTE AUTO 0.17 K/mm3 (0.00-0.10); IMMATURE GRAN PERCENT AUTO 1 % (0-1); LYMPHOCYTES PERCENT AUTO 1 % (21-46); MONOCYTES ABSOLUTE AUTO 0.96 K/mm3 (0.16-1.47); MONOCYTES PERCENT AUTO 3 % (4-13); Mean Corpuscular HGB 31.4 pg (26.0-34.0); Mean Corpuscular HGB Conc 32.5 g/dL (31.5-36.5); Mean Corpuscular Volume 97 fL (80-100); Mean Platelet Volume 11.8 fL (9.1-12.4); NEUTROPHILS ABSOLUTE AUTO 27.96 K/mm3 (1.96-9.15); NEUTROPHILS PERCENT AUTO 95 % (41-73); NRBC ABSOLUTE 0.12 K/mm3 (0.00-0.02); NRBC Auto 0.4 /100 WBC (0.0-0.2); Platelet Count 549 K/mm3 (150-400); RDW Coefficient Variation 16.6 % (11.7-14.2); RDW Standard Deviation 58.1 fL (35.1-46.3); Red Blood Cell Count 2.55 M/mm3 (3.80-5.20); White Blood Cell Count 29.54 K/mm3 (4.00-11.30)
[2022-09-06 15:54] LABS: Bilirubin, Urine Neg (Neg); Blood, Urine Neg (Neg); Color, Urine Yellow (P-Yellow); Glucose Qualitative, Urine Neg (Neg); Ketones, Urine Neg (Neg); Leukocyte Esterase, Urine Neg (Neg); Nitrite, Urine Neg (Neg); Protein, Urine 3+ (Neg); Specific Gravity, Urine 1.015 (1.003-1.022); Urobilinogen, Urine NORM (Normal)
[2022-09-06 16:39] LABS: Albumin, Blood 2.5 g/dL (3.4-5.0); Albumin/Globulin Ratio 0.8 (0.8-1.8); Bilirubin, Total 0.3 mg/dL (0.1-1.0); Calcium, Blood 7.2 mg/dL (8.5-10.1); Creatinine, Blood 3.18 mg/dL (0.40-1.00); Globulin, Blood 3.3 g/dL (2.2-4.0); Potassium, Blood 4.3 mmol/L (3.5-5.5); Total Protein, Blood 5.8 g/dL (6.4-8.2)
[2022-09-06 16:41] LABS: Appearance, Urine Hazy (Clear)
[2022-09-06 16:45] LABS: Red Blood Cells, Urine 0-2 /hpf (0-2); Squamous Epithelial Cells Rare /hpf (Few)
[2022-09-06 16:46] LABS: Bacteria Mod /hpf; Mucus Light (0-Heavy); Renal Epithelial Few /hpf (0-Rare)
[2022-09-06 17:03] LABS: Creatine Kinase MB 20.2 ng/mL (0.0-3.6); Creatine Kinase MB Index 9.8 (0.0-4.0)
[2022-09-06] MEDS ORDERED: AMLO10 PO (18:42)
[2022-09-06] MEDS ORDERED: TRAZ50 PO (18:43)
[2022-09-06] MEDS ORDERED: Keppra750 MG PO (18:43)
[2022-09-06] MEDS ORDERED: Prinivil10 MG PO (18:43)
[2022-09-06] MEDS ORDERED: Acerola C500 MG PO (18:44)
[2022-09-06] MEDS ORDERED: MIRALAX17 GM PO (18:44)
[2022-09-06] MEDS ORDERED: FERSU300 PO (18:44)
[2022-09-06] MEDS ORDERED: CALCIUM CARBON500 M1 PO (18:44)
[2022-09-06] MEDS ORDERED: DOCU100 PO (18:44)
--- NOTE | 2022-09-07 01:59 | NUR ---
Assumed care of pt at 2140 as an ER admit. Comfort Care. Repositioned and assessed comfort q2h. Patient passed comfortably at 0048. Patients next of kin contacted.
== END 2022-09-07 00:48 | DRG 951 ==
LOC: ER 14:34 → MEDS 18:14
PROVIDERS: Student in an Organized Health Care Education/Training Program; ADMIT Internal Medicine
DX: Z51.5 Encounter for palliative care (principal); G92.8 Other toxic encephalopathy; E44.0 Moderate protein-calorie malnutrition; E87.20 Acidosis, unspecified; N17.9 Acute kidney failure, unspecified; M62.82 Rhabdomyolysis; Z68.1 Body mass index [BMI] 19.9 or less, adult; N18.30 Chronic kidney disease, stage 3 unspecified; D63.1 Anemia in chronic kidney disease; R19.5 Other fecal abnormalities; G40.909 Epilepsy, unspecified, not intractable, without status epilepticus; E86.0 Dehydration; R77.8 Other specified abnormalities of plasma proteins; B96.20 Unspecified Escherichia coli [E. coli] as the cause of diseases classified elsewhere; F17.210 Nicotine dependence, cigarettes, uncomplicated; D72.829 Elevated white blood cell count, unspecified; I12.9 Hypertensive chronic kidney disease with stage 1 through stage 4 chronic kidney disease, or unspecified chronic kidney disease; K59.00 Constipation, unspecified; F03.90 Unspecified dementia, unspecified severity, without behavioral disturbance, psychotic disturbance, mood disturbance, and anxiety; Z88.5 Allergy status to narcotic agent; Z79.899 Other long term (current) drug therapy; Z79.811 Long term (current) use of aromatase inhibitors; Z87.19 Personal history of other diseases of the digestive system
CPT/HCPCS: 36415; 51702; 80053; 81001; 82550; 82553; 82947; 83605; 84146; 84443; 84484; 85025; 87077; 87086; 87186; J0456; J0692; J3010; J3370; J7030; J7050; J7070